=== PATIENT | female | born 1940 | race American Indian/Alaskan Native ===

== ENCOUNTER 2021-12-05 15:58 | Emergency (ER) | payer OTHER ==
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
--- NOTE | 2021-12-05 17:25 | XRay Report ---
Pelvis single view INDICATION: Pelvic pain after fall IMPRESSION: No fracture or subluxation is identified. Signer Name: Brady Blakely MD Signed: 12/05/2021 5:21 PM Workstation Name: [email or web address]
--- NOTE | 2021-12-05 17:25 | XRay Report ---
Left hand 2 views INDICATION: Left hand pain after fall IMPRESSION: Left hand is osteopenic. No intrinsic fracture of the left hand is identified. Signer Name: Brady Blakely MD Signed: 12/05/2021 5:21 PM Workstation Name: [email or web address]
[2021-12-05 18:30] LABS: Basophils # (Auto) 0.1 K/mm3 (0.0-0.1); Basophils % (Auto) 0.6 % (0.0-1.8); Eosinophils % (Auto) 0.5 % (0.0-4.3); Hematocrit 38.6 % (30.3-42.9); Hemoglobin 12.8 gm/dl (10.1-14.3); Lymphocytes # (Auto) 1.4 K/mm3 (1.2-5.4); Lymphocytes % (Auto) 14.5 % (13.4-35.0); Mean Corpuscular HGB Conc 33 % (30-34); Mean Corpuscular Volume 96 fl (79-97); Monocytes # (Auto) 0.5 K/mm3 (0.0-0.8); Monocytes % (Auto) 5.2 % (0.0-7.3); Platelet Count 202 K/mm3 (140-440); Red Blood Count 4.04 M/mm3 (3.65-5.03); Red Cell Distribution Width 15.6 % (13.2-15.2)
--- NOTE | 2021-12-05 18:50 | Cat Scan Report ---
CT CERVICAL SPINE: 12/05/2021 INDICATION / CLINICAL INFORMATION: Pain after being found on ground/suspected fall. COMPARISON: None available. FINDINGS: CT images of the cervical spine were obtained. Images are evaluated in the axial, coronal, and sagitt al planes. There is no evidence of acute abnormality. There is mild left convex scoliosis centered at the cervicothoracic junction. Degenerative disc space narrowing is present at all levels in cervical spine. Moderate right-sided fa cet degenerative changes are present. There is no evidence of significant osseous canal or foraminal narrowing. CRANIOCERVICAL JUNCTION: Unremarkable. PARASPINAL STRUCTURES: Unremarkable Incidental note is made of a 2 cm left thyroid nodule. IMPRESSION: No acute abnormality. Degenerative changes. INCIDENTAL THYROID NODULE RECOMMENDATIONS Nonpalpable nodules detected on US or other anatomic imaging studies are termed incidentally discover ed nodules or incidentalomas. Nonpalpable nodules have the same risk of malignancy as palpable nodule s with the same size. Generally, only nodules >1 cm should be evaluated, since they have a greater po tential to be clinically significant cancers. (AIDA, 2009). Follow up for incidental thyroid nodules <1 cm is not recommended. In patients <35 years with an incidental thyroid nodule detected on CT, MRI, or extrathyroidal ultras ound, dedicated thyroid ultrasound is recommended if the nodule is 1 cm, has no suspicious imaging fe atures, and if the patient has normal life expectancy. In patients 35 years with an incidental thyroid nodule detected on CT, MRI, or extrathyroidal ultraso und, dedicated thyroid ultrasound is recommended if the nodule is 1.5 cm, has no suspicious imaging f eatures, and if the patient has normal life expectancy. All CT scans at this location are performed using dose reduction to ALARA by means of automated expos ure control. Signer Name: Steven Garcia MD Signed: 12/05/2021 6:45 PM Workstation Name: [id number]
--- NOTE | 2021-12-05 18:51 | Cat Scan Report ---
CT BRAIN: 12/05/2021 INDICATION / CLINICAL INFORMATION: Found on ground/suspected fall. COMPARISON: None available. FINDINGS: BRAIN/INTRACRANIAL STRUCTURES: Unenhanced CT images of the brain demonstrate no evidence of acute abn ormality. Ventricles and sulci are prominent in size, consistent with age-related atrophic change. There is no evidence of acute ischemic injury, hemorrhage, or mass. There are no abnormal extra-axial fluid collections. Atherosclerotic vascular calcifications are present in the distal internal carotid arteries and verte bral arteries. EXTRACRANIAL STRUCTURES: Unremarkable. IMPRESSION: No acute abnormality. All CT scans at this location are performed using dose reduction to ALARA by means of automated expos ure control. Signer Name: Steven Garcia MD Signed: 12/05/2021 6:47 PM Workstation Name: [id number]
[2021-12-05 19:00] VITALS: BP 174/67
[2021-12-05 19:12] LABS: Alanine Aminotransferase 7 units/L (7-56); Albumin 3.8 g/dL (3.9-5); Blood Urea Nitrogen 10 mg/dL (7-17); Calcium 10.3 mg/dL (8.4-10.2); Hemolysis Index 54
--- NOTE | 2021-12-05 19:17 | Cat Scan Report ---
CT ABDOMEN AND PELVIS WITHOUT CONTRAST INDICATION / CLINICAL INFORMATION: Found on ground, complaining of abdominal pain. TECHNIQUE: Axial CT images were obtained through the abdomen and pelvis without IV contrast. All CT scans at [facility] location are performed using CT dose reduction for ALARA by means of automated exposure control. COMPARISON: None available. FINDINGS: LOWER CHEST: Small pericardial effusion.. LIVER: No significant abnormality. GALLBLADDER: Cholelithiasis. BILE DUCTS: No significant abnormality. PANCREAS: No significant abnormality. SPLEEN: No significant abnormality. ADRENALS: No significant abnormality. RIGHT KIDNEY and URETER: No significant abnormality. LEFT KIDNEY and URETER: No significant abnormality. STOMACH and SMALL BOWEL: No significant abnormality. COLON: Slight inflammation identified along the mid sigmoid colon.. . PERITONEUM: No free fluid. No free air. No fluid collection. LYMPH NODES: No significant adenopathy. AORTA and ARTERIES: Moderate atherosclerotic disease of the abdominal aorta.. IVC and VEINS: No significant abnormality. URINARY BLADDER: No significant abnormality. REPRODUCTIVE ORGANS: No significant abnormality. ADDITIONAL FINDINGS: None. SKELETAL SYSTEM: Mild arthrosis involving both SI joints. No obvious fracture is identified although there is mild diffuse osteopenia. IMPRESSION: 1. Suspect mild colitis of the mid sigmoid colon. 2. Tiny pericardial effusion. 3. Moderate stool burden throughout the colon Signer Name: Brady Blakely MD Signed: 12/05/2021 7:13 PM Workstation Name: [id number]
[2021-12-05 19:23] LABS: BUN/Creatinine Ratio 17
== END 2021-12-05 19:55 | disposition home or self-care (01) ==
LOC: ED 15:58
DX: K52.9 Noninfective gastroenteritis and colitis, unspecified (principal); F03.90 Unspecified dementia, unspecified severity, without behavioral disturbance, psychotic disturbance, mood disturbance, and anxiety; F31.9 Bipolar disorder, unspecified; F20.9 Schizophrenia, unspecified; Z90.710 Acquired absence of both cervix and uterus; Z90.49 Acquired absence of other specified parts of digestive tract; Z72.89 Other problems related to lifestyle
CPT/HCPCS: 36415; 70450; 72125; 72170; 74176; 80053; 82550; 83690; 85025; 99284